=== PATIENT | female | born 1970 | race Caucasian/White ===

== ENCOUNTER 2020-06-29 14:44 | Inpatient (IN) | payer SELFPAY ==
[2020-06-29] MEDS ORDERED: Nitroglycerin 2% Ointment 1 INCH/1 GM Packet ONE (15:02)
[2020-06-29] MEDS ORDERED: Senokot S 8.6-50 MG TAB PO PRN (17:43)
[2020-06-29] MEDS ORDERED: Ondansetron PF 4 MG/2 ML Vial IVP PRN (17:43)
[2020-06-29] MEDS ORDERED: Nicotine 21 MG PATCH TD SCH (18:00)
[2020-06-29] MEDS ORDERED: hydrALAZINE 20 MG/ML VIAL SLOW IVP SCH (18:15)
[2020-06-29] MEDS ORDERED: hydrALAZINE 20 MG/ML VIAL ONE (18:19)
[2020-06-29 18:28] LABS: Troponin I 0.065 ng/mL (< 0.028)
[2020-06-29 18:31] LABS: Cardiac Risk 4.2 (Less than 4.5)
[2020-06-29] MEDS: Carvedilol 3.125 MG TAB PO SCH (19:13)
[2020-06-30] MEDS ORDERED: Acetaminophen 325 MG TAB ONE ×2 (00:45→04:47)
[2020-06-30] MEDS: Acetaminophen 325 MG TAB PO PRN ×4 (00:48→20:35)
[2020-06-30] MEDS ORDERED: hydrALAZINE 20 MG/ML VIAL ONE (04:30)
[2020-06-30 05:00] LABS: Hemoglobin A1c 5.9 % (4.0-6.0)
[2020-06-30 05:02] LABS: Eosinophils 3 % (0-10); Hemoglobin 12.4 g/dL (12.0-16.0); Lymphocytes 38 % (21-51); MDiff Complete? YES; Mean Corpuscular HGB CONC 32.2 g/dL (32.0-36.0); Mean Corpuscular Hemoglobin 27.8 pg (27.0-31.0); Mean Corpuscular Volume 86.4 fL (78.0-98.0); Mean Platelet Volume 9.8 fL (7.4-10.4); Monocytes 2 % (0-10); Neutrophil 55 % (42-75); Platelet Count 180 thou/uL (130-400); Platelet Morphology Comment Appears Adequate; RBC Distribution Width 12.9 % (11.5-14.5); RBC Morphology Normal; Reactive Lymphocytes 2 % (0-10); Red Blood Cell (RBC) Count 4.44 mill/uL (4.20-5.40); White Blood Cell (WBC) Count 7.1 thou/uL (4.8-10.8)
[2020-06-30 05:23] LABS: ALT (SGPT) 189 U/L (8-55); AST (SGOT) 87 U/L (5-34); Albumin 3.3 g/dL (3.5-5.0); Alkaline Phosphatase 132 U/L (40-110); Anion Gap 13 mmol/L (10-20); BUN (Urea Nitrogen) 27 mg/dL (9.8-20.1); Bilirubin, Total 0.4 mg/dL (0.2-1.2); Calc. Creatinine Clearance 0 mL/min (70-130); Calcium 8.5 mg/dL (7.8-10.44); Carbon Dioxide 22 mmol/L (22-29); Chloride 105 mmol/L (98-107); Globulin 3.5 g/dL (2.4-3.5); Glucose 113 mg/dL (70-105); Magnesium 2.1 mg/dL (1.6-2.6); Potassium 4.4 mmol/L (3.5-5.1); Protein, Total 6.8 g/dL (6.0-8.3); Sodium 136 mmol/L (136-145)
[2020-06-30] MEDS ORDERED: Furosemide 40 MG/4 ML VIAL ONE (05:49)
[2020-06-30] MEDS: Furosemide 40 MG/4 ML VIAL SLOW IVP SCH ×2 (05:52→13:33)
[2020-06-30 07:03] VITALS: BMI 31.8
[2020-06-30] MEDS: Enoxaparin Sodium 40 MG/0.4 ML SYRINGE SC SCH (08:14)
[2020-06-30] MEDS: Aspirin Chewable 81 MG TAB PO SCH (08:14)
[2020-06-30] MEDS: Carvedilol 3.125 MG TAB PO SCH (08:14)
[2020-06-30 11:45] LABS: Troponin I 0.047 ng/mL (< 0.028)
[2020-06-30 12:16] LABS: HBCM Index 0.08 S/CO (0-0.79); HBSAg Index 0.19 S/CO (0-0.99); Hep A IgM AB Non-Reactive (NonReactive); Hep A IgM S/CO 0.13 S/CO (0-0.79); Hep B Surf Ag Non-Reactive S/CO (NonReactive); Hep C IgG Ab Non-Reactive (NonReactive); Hep C Index 0.07 S/CO (0-0.79); Hepatitis B Core IgM Abs Non-Reactive (NonReactive); Thyroid Stimulating Hormone 4.2349 uIU/mL (0.35-4.94)
[2020-06-30 12:44] LABS: Bacteria/HPF None Seen HPF (None Seen); Bilirubin Negative (Negative); Blood, Urine Negative (Negative); Clarity Clear (Clear); Glucose, Urine (Dipstick) Normal (Negative); Ketone, Urine Negative (Negative); Leukocyte Negative Leu/uL (Negative); Nitrite Negative (Negative); Protein, Urine (Dipstick) 10 mg/dL (Neg-Trace); RBC/HPF 0-3 HPF (0-3); Specific Gravity, Urine 1.014 (1.002-1.036); Squamous Epithelial 0-3 HPF (0-3); Urobilinogen Normal mg/dL (Less than 2); WBC/HPF 0-3 HPF (0-3)
[2020-06-30] MEDS: Carvedilol 6.25 MG TAB PO SCH (16:22)
[2020-06-30] MEDS: hydrALAZINE 20 MG/ML VIAL SLOW IVP PRN ×2 (17:05→23:49)
[2020-06-30] MEDS: Lisinopril 5 MG TAB PO SCH (20:37)
[2020-07-01] MEDS: Furosemide 40 MG/4 ML VIAL SLOW IVP SCH ×2 (05:10→13:26)
[2020-07-01] MEDS: Acetaminophen 325 MG TAB PO PRN ×2 (05:10→08:55)
[2020-07-01 05:37] LABS: Anion Gap 13 mmol/L (10-20); BUN (Urea Nitrogen) 32 mg/dL (9.8-20.1); Calc. Creatinine Clearance 91 mL/min (70-130); Calcium 9.1 mg/dL (7.8-10.44); Carbon Dioxide 28 mmol/L (22-29); Chloride 100 mmol/L (98-107); Glucose 108 mg/dL (70-105); Potassium 4.1 mmol/L (3.5-5.1); Sodium 137 mmol/L (136-145)
[2020-07-01] MEDS: Enoxaparin Sodium 40 MG/0.4 ML SYRINGE SC SCH (08:54)
[2020-07-01] MEDS: Carvedilol 6.25 MG TAB PO SCH ×2 (08:54→16:16)
[2020-07-01] MEDS: Lisinopril 5 MG TAB PO SCH ×2 (08:54→20:14)
[2020-07-01] MEDS: Aspirin Chewable 81 MG TAB PO SCH (08:55)
[2020-07-01] MEDS: Nicotine 21 MG PATCH TOP SCH (09:49)
[2020-07-02] MEDS: Acetaminophen 325 MG TAB PO PRN (03:27)
[2020-07-02 05:37] LABS: Anion Gap 15 mmol/L (10-20); BUN (Urea Nitrogen) 43 mg/dL (9.8-20.1); Calc. Creatinine Clearance 84 mL/min (70-130); Calcium 9.1 mg/dL (7.8-10.44); Carbon Dioxide 28 mmol/L (22-29); Chloride 100 mmol/L (98-107); Glucose 104 mg/dL (70-105); Potassium 3.6 mmol/L (3.5-5.1); Sodium 139 mmol/L (136-145)
[2020-07-02] MEDS ORDERED: Furosemide 40 MG TAB PO SCH (06:00)
[2020-07-02 07:09] VITALS: TEMP 98.1
[2020-07-02] MEDS: Lisinopril 5 MG TAB PO SCH (07:22)
[2020-07-02] MEDS: Enoxaparin Sodium 40 MG/0.4 ML SYRINGE SC SCH (07:22)
[2020-07-02] MEDS: Aspirin Chewable 81 MG TAB PO SCH (07:22)
[2020-07-02] MEDS: Carvedilol 6.25 MG TAB PO SCH (07:22)
[2020-07-02] MEDS: Nicotine 21 MG PATCH TOP SCH (07:23)
[2020-07-02 11:52] VITALS: BP 145/96
== END 2020-07-02 14:14 | disposition home or self-care (01) | DRG 280 ==
LOC: ERS 14:44 → 2SW 16:35 → OBSVTOIN 17:15 → ERHOLD 17:15 → 2SW 06-30 06:48
PROVIDERS: ADMIT Internal Medicine; ATTEND Internal Medicine
DX: I11.0 Hypertensive heart disease with heart failure (principal); I21.A1 Myocardial infarction type 2; I50.31 Acute diastolic (congestive) heart failure; E66.9 Obesity, unspecified; R94.5 Abnormal results of liver function studies; E78.1 Pure hyperglyceridemia; K76.1 Chronic passive congestion of liver; F17.210 Nicotine dependence, cigarettes, uncomplicated; Z91.040 Latex allergy status; Z68.28 Body mass index [BMI] 28.0-28.9, adult; Z90.710 Acquired absence of both cervix and uterus; Z91.048 Other nonmedicinal substance allergy status; I69.392 Facial weakness following cerebral infarction; Z91.14 Patient's other noncompliance with medication regimen; Z90.49 Acquired absence of other specified parts of digestive tract; I69.328 Other speech and language deficits following cerebral infarction; Z88.8 Allergy status to other drugs, medicaments and biological substances
CPT/HCPCS: 36415; 76705; 80048; 80053; 80061; 80074; 81001; 83036; 83735; 83880; 84443; 84484; 84550; 85007; 85027; 93005; 93306; 93798; 96372; 96374; 96375; 96376; G0378; J0360; J1650; J1940

== ENCOUNTER 2020-07-13 16:57 | Inpatient (IN) | payer SELFPAY ==
[2020-07-13] MEDS ORDERED: hydrALAZINE 20 MG/ML VIAL SLOW IVP PRN (18:58)
[2020-07-13] MEDS ORDERED: Ondansetron ODT 4 MG TAB PO PRN (18:58)
[2020-07-13] MEDS ORDERED: Ondansetron PF 4 MG/2 ML Vial IVP PRN (18:58)
[2020-07-13] MEDS ORDERED: Labetalol HCl 100 MG/20 ML VIAL SLOW IVP PRN (18:58)
[2020-07-13] MEDS ORDERED: Acetaminophen 325 MG TAB PO PRN (18:58)
[2020-07-13] MEDS ORDERED: Nicotine 21 MG PATCH TD SCH (19:00)
[2020-07-14 00:45] VITALS: BMI 28.0
[2020-07-14 05:58] LABS: #Basophils 0.1 thou/uL (0.0-0.2); #Eosinphils 0.4 thou/uL (0.0-0.7); #Lymphocytes 3.3 thou/uL (1.20-3.40); #Monocytes 1.1 thou/uL (0.11-0.59); #Neutrophils 4.6 thou/uL (1.40-6.50); %Basophils 0.7 % (0.0-1.0); %Eosinophils 4.5 % (0.0-10.0); %Lymphocytes 34.6 % (21.0-51.0); %Monocytes 11.4 % (0.0-10.0); %Neutrophils 48.8 % (42.0-75.0); Hemoglobin 13.7 g/dL (12.0-16.0); Mean Corpuscular HGB CONC 32.7 g/dL (32.0-36.0); Mean Corpuscular Hemoglobin 28.3 pg (27.0-31.0); Mean Corpuscular Volume 86.4 fL (78.0-98.0); Mean Platelet Volume 11.2 fL (7.4-10.4); Platelet Count 190 thou/uL (130-400); RBC Distribution Width 12.9 % (11.5-14.5); Red Blood Cell (RBC) Count 4.83 mill/uL (4.20-5.40); White Blood Cell (WBC) Count 9.4 thou/uL (4.8-10.8)
[2020-07-14 06:19] LABS: Anion Gap 13 mmol/L (10-20); BUN (Urea Nitrogen) 34 mg/dL (9.8-20.1); Calc. Creatinine Clearance 86 mL/min (70-130); Calcium 9.9 mg/dL (7.8-10.44); Carbon Dioxide 29 mmol/L (22-29); Cardiac Risk 5.2 (Less than 4.5); Chloride 98 mmol/L (98-107); Cholesterol 212 mg/dl (< 200 Desired); Glucose 109 mg/dL (70-105); HDL Cholesterol 41 mg/dL (>60 Neg Risk); LDL Cholesterol, Calculated 122 mg/dL; Potassium 4.1 mmol/L (3.5-5.1); Sodium 136 mmol/L (136-145); Triglycerides 245 mg/dL (Less than 150)
[2020-07-14 06:51] LABS: SARS-CoV-2 PCR by NAA Not Detected (NotDetected)
[2020-07-14 11:31] LABS: Bacteria/HPF None Seen HPF (None Seen); Bilirubin Negative (Negative); Blood, Urine Negative (Negative); Clarity Clear (Clear); Glucose, Urine (Dipstick) Normal (Negative); Ketone, Urine Negative (Negative); Leukocyte Negative Leu/uL (Negative); Nitrite Negative (Negative); Protein, Urine (Dipstick) Negative (Neg-Trace); RBC/HPF 0-3 HPF (0-3); Specific Gravity, Urine 1.014 (1.002-1.036); Squamous Epithelial 0-3 HPF (0-3); Urobilinogen Normal mg/dL (Less than 2); WBC/HPF 0-3 HPF (0-3); pH, Urine 5.5 (5.0-9.0)
[2020-07-14] MEDS ORDERED: Magnevist 469MG/ML 20 ML VIAL ONE (12:36)
[2020-07-14] MEDS: Nicotine 21 MG PATCH TOP SCH (12:50)
[2020-07-14] MEDS: Furosemide 40 MG TAB PO SCH (14:12)
[2020-07-14] MEDS: Carvedilol 6.25 MG TAB PO SCH (16:53)
[2020-07-14] MEDS: Lisinopril 5 MG TAB PO SCH (20:15)
[2020-07-14] MEDS ORDERED: Atorvastatin Calcium 40 MG TAB PO SCH (21:00)
[2020-07-15] MEDS: Furosemide 40 MG TAB PO SCH (06:54)
[2020-07-15] MEDS: Carvedilol 6.25 MG TAB PO SCH (07:58)
[2020-07-15] MEDS: Lisinopril 5 MG TAB PO SCH (07:59)
[2020-07-15] MEDS ORDERED: Potassium Chloride 10 MEQ TAB PO SCH (08:00)
[2020-07-15 08:35] LABS: #Basophils 0.1 thou/uL (0.0-0.2); #Eosinphils 0.4 thou/uL (0.0-0.7); #Lymphocytes 2.6 thou/uL (1.20-3.40); #Monocytes 0.9 thou/uL (0.11-0.59); #Neutrophils 5.7 thou/uL (1.40-6.50); %Basophils 0.7 % (0.0-1.0); %Lymphocytes 26.7 % (21.0-51.0); %Monocytes 9.4 % (0.0-10.0); %Neutrophils 59.3 % (42.0-75.0); Hemoglobin 13.4 g/dL (12.0-16.0); Mean Corpuscular HGB CONC 32.2 g/dL (32.0-36.0); Mean Corpuscular Hemoglobin 27.7 pg (27.0-31.0); Mean Corpuscular Volume 85.8 fL (78.0-98.0); Mean Platelet Volume 11.2 fL (7.4-10.4); Platelet Count 191 thou/uL (130-400); RBC Distribution Width 12.7 % (11.5-14.5); Red Blood Cell (RBC) Count 4.85 mill/uL (4.20-5.40); White Blood Cell (WBC) Count 9.7 thou/uL (4.8-10.8)
[2020-07-15 08:57] LABS: Anion Gap 16 mmol/L (10-20); BUN (Urea Nitrogen) 30 mg/dL (9.8-20.1); Calc. Creatinine Clearance 89 mL/min (70-130); Calcium 9.5 mg/dL (7.8-10.44); Carbon Dioxide 25 mmol/L (22-29); Cardiac Risk 5.1 (Less than 4.5); Chloride 98 mmol/L (98-107); Cholesterol 214 mg/dl (< 200 Desired); Glucose 139 mg/dL (70-105); HDL Cholesterol 42 mg/dL (>60 Neg Risk); LDL Cholesterol, Calculated 129 mg/dL; Potassium 3.9 mmol/L (3.5-5.1); Sodium 135 mmol/L (136-145); Triglycerides 217 mg/dL (Less than 150)
[2020-07-15] MEDS ORDERED: Clopidogrel Bisulfate 75 MG TAB PO SCH (09:00)
[2020-07-15] MEDS ORDERED: Aspirin Chewable 81 MG TAB PO SCH ×2 (09:00)
[2020-07-15] MEDS: Nicotine 21 MG PATCH TOP SCH (11:16)
[2020-07-15 12:13] VITALS: BP 151/73; TEMP 97.3
== END 2020-07-15 12:45 | disposition home or self-care (01) | DRG 64 ==
LOC: ERS 16:57 → 2SE 17:52 → OBSVTOIN 07-14 18:18
PROVIDERS: ADMIT Internal Medicine; ATTEND Internal Medicine
DX: I63.9 Cerebral infarction, unspecified (principal); I21.A1 Myocardial infarction type 2; I50.32 Chronic diastolic (congestive) heart failure; I11.0 Hypertensive heart disease with heart failure; F15.10 Other stimulant abuse, uncomplicated; E66.9 Obesity, unspecified; R20.2 Paresthesia of skin; F17.200 Nicotine dependence, unspecified, uncomplicated; R94.5 Abnormal results of liver function studies; Z88.8 Allergy status to other drugs, medicaments and biological substances; Z91.040 Latex allergy status; Z79.82 Long term (current) use of aspirin; Z90.49 Acquired absence of other specified parts of digestive tract; Z90.711 Acquired absence of uterus with remaining cervical stump; Z71.6 Tobacco abuse counseling; Z98.890 Other specified postprocedural states; Z71.51 Drug abuse counseling and surveillance of drug abuser; Z68.28 Body mass index [BMI] 28.0-28.9, adult
CPT/HCPCS: 36415; 70553; 80048; 80061; 81001; 83036; 85025; 87635; 93005; A9579; G0378; U0003; U0005